=== PATIENT | female | born 1990 | race Caucasian/White ===

== ENCOUNTER 2022-10-07 22:39 | Emergency (ER) | payer MEDICAID, SELFPAY ==
[2022-10-07 22:41] VITALS: BP 159/102; PULSE 127; RESP 16; TEMP 37.3; O2SAT 99; BMI 26.6
[2022-10-07 22:58] LABS: Microscopic, Urine URINE MICROSCOPIC (MICROSCOPIC)
[2022-10-07 23:00] VITALS: BP 139/75; PULSE 120; O2SAT 96
[2022-10-07 23:05] LABS: Bilirubin,Urine Negative (Negative); Blood, Urine Negative (Negative); Color,Urine YELLOW (Yellow); Glucose,Urine (UA) Negative (Negative); Ketones,Urine Negative (Negative); Leukocyte Esterase,Urine 1+ (Negative); Nitrate,Urine Negative (Negative); PH,Urine 7.5 (5.0-8.5); Protein,Urine Negative (Negative); Specific Gravity, Urine 1.015 (1.005-1.030)
[2022-10-07 23:07] LABS: Appearance,Urine Slightly Cloudy (Clear)
[2022-10-07 23:07] LABS: Coronavirus 19, PCR Not Detected (NotDetected); Influenza A, PCR Not Detected (NotDetected); Influenza B, PCR Not Detected (NotDetected)
--- NOTE | 2022-10-07 23:07 | PC.NURSE ---
Dr. Briseno at
[2022-10-07 23:09] LABS: Alanine Aminotransferase 26 U/L (12-78); Albumin Level 4.6 g/dl (3.5-5.0); Albumin/Globulin Ratio 1.6 (1.1-1.8); Alkaline Phosphatase 77 U/L (38-126); Anion Gap 11.2 mEq/L (5-15); Aspartate Amino Transferase 39 U/L (14-36); Bilirubin,Total 1.3 mg/dl (0.2-1.3); Blood Urea Nitrogen 13 mg/dl (7-17); Calcium 8.8 mg/dl (8.4-10.2); Carbon Dioxide 23 mmol/L (22.0-30.0); Chloride 103 mmol/L (98-107); Creatinine Clearance Estimated 117 mL/min (50-200); Estimated Glomerular Filt Rate 84 ml/min (>60); GFR (African American) 101 ML/MIN (>60); Globulin 2.9 g/dL (1.3-3.2); Glucose 95 mg/dl (74-100); Potassium 4.2 mmoL/L (3.5-5.1); Sodium 133 mmol/L (136-145); Total Protein,Serum 7.5 g/dl (6.3-8.2)
[2022-10-07 23:10] LABS: Urine Pregnancy, HCG Qual. Negative (Negative)
[2022-10-07 23:11] LABS: Basophils % 0.4 % (0.1-2.0); Eosinophils # 0.1 K/mm3 (0.0-0.4); Eosinophils % 1.1 % (0.1-12.0); Hematocrit 41.8 % (37.0-47.0); Hemoglobin 13.7 g/dL (12.2-16.2); Lymphocytes % 10.1 % (10-50); Mean Corpuscular HGB Conc 32.8 g/dL (31.8-35.4); Mean Corpuscular Volume 91.5 fl (81-99); Mean Platelet Volume 8.1 fl (7.4-10.4); Monocytes # 0.3 K/mm3 (0.1-1.0); Monocytes % 2.7 % (1.7-9.3); Neutrophils # 8.8 K/mm3 (1.8-7.8); Neutrophils % 85.7 % (37.0-80.0); Platelet Count 205 K/mm3 (142-424); Red Blood Count 4.57 M/mm3 (4.20-5.40); Red Cell Distribution Width 12.8 % (11.5-17.5); White Blood Count 10.3 K/mm3 (4.8-10.8)
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
[2022-10-07 23:13] LABS: MANUAL DIFFERENTIAL MANUAL DIFFERENTIAL (MANUAL DIFF)
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
[2022-10-07 23:14] LABS: C-Reactive Protein 26.1 mg/L (0-4)
--- NOTE | 2022-10-07 23:24 | PC.NURSE ---
Pt gone to RAD via wheelchair
--- NOTE | 2022-10-07 23:25 | PC.NURSE ---
Spoke with Katie at [facility] to obtain records from ER visit
[2022-10-07 23:27] LABS: Amorphous Sediment,Urine 1+ /lpf; Amphetamine/Metha Screen,Urine Negative ng/ml (<1000); Bacteria,Urine 1+ /lpf; Barbiturates Screen,Urine Negative ng/ml (<200)
[2022-10-07 23:28] LABS: Benzodiazepines Screen,Urine Negative ng/ml (<200); Procalcitonin 0.293 ng/mL (0.0-2.0)
[2022-10-07 23:29] LABS: Cannabinoid Screen,Urine Positive ng/ml (<50); Cocaine Screen,Urine Negative ng/ml (<300)
[2022-10-07 23:30] LABS: Methadone Screen,Urine Positive ng/ml (<300); Opiate Screen,Urine Negative ng/ml (<300)
[2022-10-07 23:31] LABS: Phencyclidine Screen,Urine Negative ng/ml (<25)
[2022-10-07 23:40] LABS: Lactic Acid < 0.5 mmol/L (0.7-2.1)
--- NOTE | 2022-10-07 23:42 | PC.NURSE ---
Pt back from RAD
--- NOTE | 2022-10-07 23:42 | PC.NURSE ---
Received records from [facility]
[2022-10-07 23:48] LABS: Lymphocytes % 12 % (10-50); Monocytes % 4 % (2-9); Neutrophils % 84 % (42-76); Platelet Estimate Normal; RBC Morphology Normal; Total Cells Counted 100
[2022-10-07 23:59] LABS: Erythrocyte Sedimentation Rate 16 mm/hr (0-20)
[2022-10-08 00:42] VITALS: BP 109/83; PULSE 82; RESP 16; TEMP 36.9; O2SAT 99
== END 2022-10-08 00:56 | disposition home or self-care (01) ==
PROVIDERS: Emergency Provider Emergency Medicine; PCP Family Medicine
DX: N39.0 Urinary tract infection, site not specified (principal); R65.10 Systemic inflammatory response syndrome (SIRS) of non-infectious origin without acute organ dysfunction; M54.6 Pain in thoracic spine; M54.50 Low back pain, unspecified; R11.2 Nausea with vomiting, unspecified
CPT/HCPCS: 71046; 72126; 72129; 72132; 80053; 80305; 81001; 81025; 83605; 84145; 85007; 85025; 85651; 86140; 87040; 87086; 87088; 87186; 96360; 96374; 96375; 99285; C9803; J0696; J2405; Q9967; U0003; U0005